=== PATIENT | male | born 1980 | race Caucasian/White ===

== ENCOUNTER 2017-04-06 11:00 | Emergency (ER) | payer BC ==
[~2017-04-06] VITALS: Ht 167.6 cm; Wt 102.1 kg
[~2017-04-06 11:00] MED LIST: IBU-8800 MG PO; NKHM
[2017-04-06] MEDS ORDERED: NAPROSYN500 MG PO (11:14)
== END 2017-04-06 14:17 | disposition home or self-care (01) ==
LOC: ED 11:00
DX: M25.521 Pain in right elbow (principal); R03.0 Elevated blood-pressure reading, without diagnosis of hypertension; F17.200 Nicotine dependence, unspecified, uncomplicated; Z88.8 Allergy status to other drugs, medicaments and biological substances

== ENCOUNTER 2019-04-25 09:27 | Emergency (ER) | payer BC ==
[~2019-04-25] VITALS: Ht 170.1 cm; Wt 102.1 kg
[~2019-04-25 09:27] MED LIST changes: +NAPROSYN500 MG PO
[2019-04-25] MEDS ORDERED: AMITRIPTYLINE25 MG PO (09:59)
[2019-04-25] MEDS ORDERED: IBUPROFEN600 MG PO (09:59)
== END 2019-04-25 10:10 | disposition home or self-care (01) ==
LOC: ED 09:27
DX: M79.2 Neuralgia and neuritis, unspecified (principal); M79.671 Pain in right foot; M79.672 Pain in left foot; Z88.8 Allergy status to other drugs, medicaments and biological substances; Z79.899 Other long term (current) drug therapy

== ENCOUNTER 2020-01-22 12:54 | Emergency (ER) | payer BC ==
[~2020-01-22] VITALS: Ht 167.6 cm; Wt 102.1 kg
[~2020-01-22 12:54] MED LIST changes: +AMITRIPTYLINE25 MG PO; +IBUPROFEN600 MG PO
[2020-01-22 13:37] LABS: BASO # 0.1 10*3/uL (0.0-0.1); BASO % 0.8 % (0.0-1.0); EOS # 0.1 10*3/uL (0.0-0.4); EOS % 1.6 % (1.0-4.0); HEMATOCRIT 48.1 % (42.0-52.0); HEMOGLOBIN 16.7 g/dl (14.0-18.0); LYMPH # 1.9 10*3/uL (1.3-4.4); LYMPH % 30.8 % (27.0-41.0); MEAN CELL VOLUME 93.6 fl (80.0-94.0); MEAN CORPUSCULAR HGB 32.5 pg (27.0-31.0); MEAN CORPUSCULAR HGB CONC 34.7 g/dl (33.0-37.0); MEAN PLATELET VOLUME 8.4 fl (9.6-12.3); MONO # 0.6 10*3/uL (0.1-1.0); MONO % 9.9 % (3.0-9.0); NEUT # 3.5 10*3/uL (2.3-7.9); NEUT % 56.6 % (47.0-73.0); PLATELET COUNT AUTOMATED 194 10*3/uL (130-400); RED BLOOD COUNT 5.14 10*6/uL (4.50-5.90); RED CELL DISTRI WIDTH 12.4 % (0-14.5); WHITE BLOOD COUNT 6.1 10*3/uL (4.8-10.8)
[2020-01-22 13:52] LABS: ALBUMIN 3.7 gm/dl (3.1-4.5); ALKALINE PHOSPHATASE 89 U/L (45-117); BUN 15 mg/dl (7-24); CHLORIDE 105 mmol/L (98-107); CREATININE 0.85 mg/dL (0.70-1.30); POTASSIUM 4.3 mmol/L (3.5-5.1); SGOT/AST 21 IU/L (3-35); SGPT/ALT 51 U/L (12-78); SODIUM 139 mmol/L (136-145); TOTAL PROTEIN 7.2 gm/dL (6.4-8.2)
== END 2020-01-22 14:15 | disposition home or self-care (01) ==
LOC: ED 12:54
PROVIDERS: Nurse Practitioner Family
DX: R42 Dizziness and giddiness (principal); Z88.8 Allergy status to other drugs, medicaments and biological substances

== ENCOUNTER 2021-06-06 20:26 | Emergency (ER) | payer BC ==
[~2021-06-06] VITALS: Ht 170.1 cm; Wt 81.6 kg
== END 2021-06-06 21:48 | disposition home or self-care (01) ==
LOC: ED 20:26
DX: S05.02XA Injury of conjunctiva and corneal abrasion without foreign body, left eye, initial encounter (principal); Z88.8 Allergy status to other drugs, medicaments and biological substances; Z79.899 Other long term (current) drug therapy; X58.XXXA Exposure to other specified factors, initial encounter; Y93.89 Activity, other specified; Y92.89 Other specified places as the place of occurrence of the external cause; Y99.8 Other external cause status

== ENCOUNTER 2025-05-27 08:35 | Emergency (ER) | payer OTHER ==
[~2025-05-27] VITALS: Ht 170.1 cm; Wt 90.7 kg
[2025-05-27] MEDS ORDERED: SEPTDS PO (09:29)
== END 2025-05-27 09:42 | disposition home or self-care (01) ==
LOC: ED 08:35
DX: Z88.8 Allergy status to other drugs, medicaments and biological substances (principal); L03.012 Cellulitis of left finger